=== PATIENT | male | born 1965 | race African-American/Black ===

== ENCOUNTER 2019-05-18 21:36 | Emergency (ER) | payer OTHER ==
[2019-05-18 21:54] VITALS: BP 144/91
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
[2019-05-18] MEDS ORDERED: Amoxicillin/Clavulanate TAB* 875 MG PO ONE (22:15)
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
[2019-05-19 16:04] LABS: HIV 4th Generation Negative (Negative)
[2019-05-19 19:08] LABS: Hepatitis B Surface Antigen Negative (Negative)
[2019-05-19 19:25] LABS: Hepatitis B Surface Ab Not Immune (Immune); Hepatitis C Antibody Negative (Negative)
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
== END 2019-05-18 22:58 | disposition home or self-care (01) ==
LOC: UCEAST 21:36
DX: S61.052A Open bite of left thumb without damage to nail, initial encounter (principal); Y04.1XXA Assault by human bite, initial encounter; M18.12 Unilateral primary osteoarthritis of first carpometacarpal joint, left hand; M19.042 Primary osteoarthritis, left hand; I10 Essential (primary) hypertension
CPT/HCPCS: 36415; 86706; 86803; 87340; 87389; 99203; A9270-GY; G0463